=== PATIENT | male | born 1980 | race Caucasian/White ===

== ENCOUNTER 2017-11-14 15:47 | Emergency (ER) | payer SELFPAY ==
[~2017-11-14] VITALS: Ht 175.3 cm; Wt 85.0 kg
[2017-11-14 16:12] VITALS: BP 130/67; PULSE 77; RESP 17; TEMP 98.9; O2SAT 100
[2017-11-14] MEDS ORDERED: NORC5TAB PO (19:11)
[2017-11-14] MEDS ORDERED: BACT800T5 PO (19:11)
[2017-11-14] MEDS ORDERED: DOXY100C PO (19:11)
[2017-11-14] MEDS ORDERED: LIDOCAINE 1%/EPINEPHrine 1:100,000 SOLN 20 ML VIAL INFIL ONE (19:15)
[2017-11-14] MEDS ORDERED: SULFAMETHOXAZOLE-TRIMETHOPRIM DS 800-160 MG TAB PO ONE (19:15)
[2017-11-14] MEDS ORDERED: DOXYCYCLINE INJ 100 MG in SODIUM CHLORIDE 0.9% INJ 100 ML IV ONE (19:15)
--- NOTE | 2017-11-14 19:17 | PD ---
HPI Chief Complaint: Skin Problem Time Seen by Provider: 19:05 Travel History International Travel<30 days: No Contact w/Intl Traveler<30days: No Traveled to known affect area: No History of Present Illness HPI 37-year-old white male presents emergency department with an abscess to his left forearm which she has had now for the past week. He stated it started off as a small pimple. He had squeezing picked the area. He denies any IV drug use. He denies any history of MRSA. He does report that his significant other has had a history of MRSA. He denies any fever chills, nausea vomiting, abdominal pain. Symptoms are moderate. No alleviating factors. No exacerbating factors. Up-to-date with immunizations. PFSH Past Medical History Medical History: Denies Significant Hx Tetanus Vaccination: < 5 Years Past Surgical History Surgical History: No Previous Surgery Social History Alcohol Use: Yes Tobacco Use: Yes Substance Use: Yes Allergies-Medications (Allergen,Severity, Reaction): Coded Allergies: No Known Allergies (Unverified , 11/14/17) Reported Meds & Prescriptions Reported Meds & Active Scripts Active [place] (Hydrocodone-Acetaminophen) 5 Mg-325 Mg Tab 1 Tab PO Q6H PRN 10 Days Doxycycline Hyclate 100 Mg Cap 100 Mg PO BID Bactrim DS (Sulfamethoxazole-Trimethoprim) 800-160 Mg Tab 1 Tab PO BID Review of Systems Except as stated in HPI: all other systems reviewed are Neg Physical Exam Narrative GENERAL: This is a well-nourished, well-developed patient, in no apparent distress. SKIN: No rashes, ecchymoses or lesions. Warm and dry. HEAD: Atraumatic. Normocephalic. EYES: PERRL, EOMI, no discharge or injection. No scleral icterus. EARS: Clear NOSE: Nasal turbinates appear normal. THROAT: Mucosa pink and moist. Airway patent. NECK: Trachea midline. supple, moves head freely. LUNGS: Clear to auscultation. CV: Regular in rhythm. ABDOMEN: Soft nontender. EXT: No clubbing cyanosis. Examination of left upper extremity reveals a fluctuant abscess in the mid dorsal forearm measuring 4 x 4 centimeters. It is erythematous, warmth and tender. There is some surrounding edema of the forearm. No pain in the shoulder, elbow, wrist or hand. He has intact median/ ulnar/radial nerves. Data Data Last Documented VS Vital Signs Date Time Temp Pulse Resp B/P (MAP) Pulse Ox O2 Delivery O2 Flow Rate FiO2 11/14/17 16:12 98.9 77 17 130/67 (88) 100 Orders Orders Lidocai-Epi 1%-1:100,000 Inj (Xylocaine- (11/14/17 19:15) Sulfamet-Trimeth Ds 800-160 Mg (Bactrim (11/14/17 19:15) Doxycycline Inj (Vibramycin Inj) (11/14/17 19:15) MDM Medical Decision Making Medical Screen Exam Complete: Yes Emergency Medical Condition: Yes Medical Record Reviewed: Yes Differential Diagnosis MDM: High Differential diagnoses: Abscess, folliculitis, cellulitis, lymphangitis, abrasion, contact dermatitis Narrative Course Bactrim DS, doxycycline 100 mg p.o. An incision and drainage has been performed. This is left forearm abscess Procedures Procedure Narrative I&D abscess: After the risks and benefits were discussed the following procedure was performed. The skin is prepped and draped in the usual sterile fashion using Betadine. The abscess is anesthetized with 1% lidocaine with epinephrine. After adequate anesthesia, an 11 blade scalpel is used to make a 3 centimeter central incision. Perulant material is expressed. Loculations are broken up using curved Hailey forceps. The wound is cleansed deeply using dilute normal saline. The wound is packed open using iodoform gauze. A clean dressing is applied. The patient tolerated the procedure well. There was no complications. Follow- up instructions were given to the patient. Diagnosis Primary Impression: Left forearm abscess Patient Instructions: General Instructions Additional Instructions: Rest. Elevation. keep clean and dry. remove the packing in two days. Daily wound care with soap, water and Neosporin. Three Advil every 6 hours. Doxycycline, Septra DS, and Lortab. Follow-up with a primary care doctor in 2-3 days Return to the ER for any problems. Med/Other Pt SpecificInfo: Prescription(s) given Scripts Hydrocodone-Acetaminophen ([place]) 5 Mg-325 Mg Tab 1 TAB PO Q6H Y for PAIN for 10 Days, #40 TAB 0 Refills Prov: Dank Welch MD 11/14/17 Doxycycline Hyclate (Doxycycline Hyclate) 100 Mg Cap 100 MG PO BID for Infection, #20 CAP 0 Refills Prov: Dank Welch MD 11/14/17 Sulfamethoxazole-Trimethoprim (Bactrim DS) 800-160 Mg Tab 1 TAB PO BID for Infection, #20 TAB 0 Refills Prov: Dank Welch MD 11/14/17 Disposition: 01 DISCHARGE HOME Condition: Stable Alfredito Gordon Nov 14, 2017 19:17
[2017-11-14] MEDS ORDERED: DOXYCYCLINE HYCLATE 100 MG CAP PO ONE (19:30)
[2017-11-14] MEDS ORDERED: LIDOCAINE 1%/EPINEPHrine 1:100,000 SOLN 30 ML VIAL INFIL ONE (19:30)
== END 2017-11-14 19:50 | disposition home or self-care (01) ==
LOC: NEPD 15:47
DX: L02.414 Cutaneous abscess of left upper limb (principal); Z72.0 Tobacco use
CPT/HCPCS: 10061